=== PATIENT | male | born 1990 | race Caucasian/White ===

== ENCOUNTER → 2019-10-10 09:59 | Outpatient (CLI) | payer BC, SELFPAY ==
--- NOTE | 2019-10-10 10:05 | RAD_ITS ---
STUDY: X-RAY - THORACIC SPINE REASON FOR EXAM: Male, 28 years old. BACK PAIN, NO KNOWN INJURY TECHNIQUE: 3 view(s) of the thoracic spine were obtained. COMPARISON: None. FINDINGS: Normal kyphosis of the thoracic spine. There is no substantial scoliosis. Normal thoracic vertebrae and endplates. Normal disc space heights. The soft tissue structures are unremarkable. RAD/Thoracic Spine 3 Views IMPRESSION: Normal x-ray examination of the thoracic spine. Electronically Signed: Alex Culp MD at 20:55 EST , Service support ,
== END ==
PROVIDERS: PCP Internal Medicine; Referring Provider Internal Medicine; Visit Provider Internal Medicine
DX: M54.6 Pain in thoracic spine (principal)
CPT/HCPCS: 72072

== ENCOUNTER 2019-10-29 11:00 | Outpatient (RCR) | payer BC, SELFPAY ==
--- NOTE | 2019-10-15 11:03 | HP.PTEVAL ---
Patient's Visit Information SHEKHAR SPENCER is a 28 year old M referred to Physical Therapy by Annamaria Duff DO with a diagnosis of thoracic pain. Date of Evaluation: 10/15/19 Physical Therapist: Landen Julian, DPT, OCS, CSCS - Visit Plan Frequency: 2-3x /Week Duration: 4-6 Weeks Plan: 2-3x/week for 4-6 weeks as needed for... 1. DTR to L thoracic paraspinals each visit. 2. A/PROM thoracic rotationa dn ext with mobs graded 4. 3. mat strengthen multifidus and core/posture and progress to machine/db strength(pt is very motivated and willing to strengthen if he can do it without increased pain. 4. body mechanics and postural education - Subjective Findings: Family has shitty backs. Stopped working out 2 yrs ago because back hurts. Back hurts constantly in thoracic area between shoulder baldes. Used to be now and then, now it hurts all the time. Currently 0/10. Standing and breathing clicks and pops. Needs to change psoition alot. No UE symptoms. Worse with slouching. [employer] all day...is miserable after work every day. Feels ok first thing in morning but worse as the day goes. Nees to slow down and take care later in day. Thinking of changing career due to this. Was a body building workout but had to stop that. Watches TV at home, has to be careful of position. Basic ADLs are OK - Pain mid back pain. Pain Intensity (Out of 10): 0 Pain Intensity Range: 0, 6 Comment: end of work day. - Objective Posture is slouched in thoracic spine but not bad overall. cervical adn Lumbar ROM are WFL adn painfree. Thoracic spine is slightly flexed adn stiff into extension. Tender L side t456 and knot palpable L thoracic paraspinals. thoracic rotation painful at end range B L>R, ext also tender at end range. UE and LE sensation WNL to gross light touch. reflexes bi,tri,patella, achilles 2/3 B. Srength UE and LE 4+/5 without pain. ext adn felxion strength thoraci spine 4/5 adn painfree today. PA pressure tender in throacic spine. Walks normal and transitions normal. - Goals Goal 1:: Work without increaed pain Goal Time Frame: 4-6 Weeks Goal 2:: Patient able to return to a gym workout without increased pain Goal Time Frame: 4-6 Weeks Goal 3:: Full PROM thoracic spine without pain Goal Time Frame: 4-6 Weeks Goal 4:: Pain 75% better at 1/10 at manageable with HEP Goal Time Frame: 4-6 Weeks - Rehabilitation Potential Physical Therapy Diagnosis: thoracic back pain Rehabilitation Potential: Fair - Anticipated Interventions Patient/Client Instruction: Educate patient on: Condition, Plan of Care For the Purpose of:: To decrease pain, To increase ROM, To improve ability of physical actions for home/community/work/leisure Therapeutic Exercise to Include: Strength training, Postural training, Passive ROM, Active ROM, Dynamic Lumbar Stabilization For the Purpose of:: To decrease pain, To increase ROM, To improve muscle performance and motor function, To improve ability of physical actions for home/community/work/leisure Manual Therapy Techniques to Include: Mobilization, Soft tissue mobilization Comment: dtr For the Purpose of:: To decrease pain, To increase ROM Thank you for the opportunity to evaluate your patient. For Medicare and Medicare HMO plans, please review the plan of care and approve it. It will need to be FAXED BACK to us at [phone] for Medicare purposes. For Medicare only, by signing this I certify the plan of care. Please let me know if there are questions or concerns regarding this plan of care. Physician Signature: Date:
--- NOTE | 2019-12-30 13:31 | HP.PT.NRP ---
SHEKHAR SPENCER was seen in my office for initial evaluation on 10/15/19. The following Plan of Care was established for this patient: Initial Frequency: 2-3x /Week Initial Duration: 4-6 Weeks Patient/Client Instruction: Educate patient on: Condition, Plan of Care For the Purpose of:: To decrease pain, To increase ROM, To improve ability of physical actions for home/community/work/leisure Therapeutic Exercise to Include: Strength training, Postural training, Passive ROM, Active ROM, Dynamic Lumbar Stabilization For the Purpose of:: To decrease pain, To increase ROM, To improve muscle performance and motor function, To improve ability of physical actions for home/community/work/leisure Manual Therapy Techniques to Include: Mobilization, Soft tissue mobilization Comment: dtr For the Purpose of:: To decrease pain, To increase ROM This patient was last seen in our office 10/29/19. Pertinent comments regarding their Physical therapy will appear below: Pt seen 4 visits of POC. He cancelled his last two visits without rescheduling. At this point, it has been over two months adn I will discontinue due to nonattendance. At this point I will be discontinuing this patient from physical therapy. I would be happy to see this patient again in the future if found appropriate by the physician. Thank you! Landen Julian, DPT, OCS, CSCS
== END 2019-10-29 19:00 | disposition home or self-care (01) ==
LOC: PT 11:00
PROVIDERS: PCP Internal Medicine; Referring Provider Internal Medicine; Visit Provider Internal Medicine
DX: M54.6 Pain in thoracic spine (principal)
CPT/HCPCS: 97035; 97110; 97140; 97162